=== PATIENT | male | born 1985 | race Caucasian/White ===

== ENCOUNTER → 2025-01-31 | Emergency (ER) | payer BC ==
[~2025-01-31] VITALS: Ht 170.2 cm; Wt 65.8 kg
[~2025-01-31] MED LIST: FLUORESCEIN SODIUM OPHTH 1 EA STRIP ONE; TETRAcaine 5 ML BOTTLE ONE
[2025-01-31 15:23] VITALS: BP 99/70; TEMP 98.6
[2025-01-31] MEDS: FLUORESCEIN SODIUM OPHTH 1 EA STRIP OP ONE (15:40)
[2025-01-31] MEDS: TETRACAINE HCL 0.5% OPHTALMIC 15 ML BOTTLE OP ONE (15:40)
[2025-01-31 16:07] VITALS: O2SAT 98
== END | disposition home or self-care (01) ==
LOC: ER 15:30
DX: H57.89 Other specified disorders of eye and adnexa (principal)